=== PATIENT | female | born 1985 | race Caucasian/White ===

== ENCOUNTER → 2017-02-03 | Outpatient (CLI) | payer OTHER, MEDICAID ==
[2017-02-03 13:45] LABS: BASO % 0.2 % (0.0-1.0); EOS # 0.2 K/mm3 (0.0-0.50); EOS % 1.5 % (0.0-3.0); LARGE UNSTAINED CELL # 0.2 K/mm3 (0.0-0.4); LARGE UNSTAINED CELL % 1.1 % (0.0-4.0); LYMPH # 2.8 K/mm3 (1.5-4.5); LYMPH % 19.5 % (24.0-44.0); MEAN CORPUSCULAR HEMOGLOBIN 28.1 pg (27.0-33.0); MEAN CORPUSCULAR VOLUME 82.9 fl (80.0-96.0); MONO # 0.6 K/mm3 (0.0-0.8); MONO % 4.1 % (0.0-5.0); NEUTROPHILS # 10.4 K/mm3 (1.8-7.7); NEUTROPHILS % 73.5 % (36.0-66.0); PLATELET COUNT, AUTOMATED 439 k/mm3 (150-450); RED CELL DISTRIBUTION WIDTH 13.6 % (11.5-14.5); WHITE BLOOD COUNT 14.2 K/mm3 (4.0-10.0)
[2017-02-04 11:21] LABS: HBsAg Prenatal NEGATIVE (NEGATIVE)
== END ==
LOC: M SMT 10:38
PROVIDERS: ATTEND Advanced Practice Midwife
DX: Z34.81 Encounter for supervision of other normal pregnancy, first trimester (principal)

== ENCOUNTER → 2017-02-17 | Outpatient (CLI) | payer MEDICAID, OTHER ==
[2017-02-17 12:58] LABS: ALT/SGPT 33 U/L (12-78); AST/SGOT 16 U/L (15-37); BILIRUBIN,TOTAL 0.3 MG/DL (0.2-1.0); CREATININE FOR GFR 0.62 MG/DL (0.55-1.02); GLOMERULAR FILTRATION RATE > 60.0 (>60); URIC ACID 3.6 MG/DL (2.6-6.0)
== END ==
LOC: M LAB 10:38
PROVIDERS: ATTEND Advanced Practice Midwife
DX: O99.210 Obesity complicating pregnancy, unspecified trimester (principal)

== ENCOUNTER → 2017-04-25 | Outpatient (CLI) | payer OTHER, MEDICAID ==
--- NOTE | 2017-04-25 15:56 | REP ---
Clinical: Anatomical evaluation. Comparison: None. Findings: Examination demonstrates a single live intrauterine in cephalic presentation. motion is identified by technologist. Placenta is noted right lateral and grade zero without evidence for placenta previa or abruption. Amniotic fluid volume is normal. Cervix measures 4.6 cm in length and appears closed. 4.3 x 3.2 x 3.5 cm left lateral fibroid identified. No evidence for nuchal cord. Gestational age by current measurements 19 weeks 5 days with GARCIA 09/14/2017 . FHR equals 144 beats per minute. BPD 4.8 cm 20 weeks 3-day HC 17.1 cm 19 weeks 5 days AC 13.6 cm 19 weeks 0 days FL 3.3 cm 20 weeks 2 days HL 3.2 cm 20 weeks 5-day HC/AC ratio 1.26 Estimated weight 306 grams ( 47th percentile). Anatomical assessment demonstrates normal structures including cranium, choroid plexus, cavum, cerebellum/posterior fossa, facial features, lungs, diaphragm, stomach, cord insertion, kidneys/bladder, and extremities. Limited evaluation of the four-chamber heart/ventricular outflow tracts, three-vessel cord, and spine. Impression: 1. Single live intrauterine in cephalic presentation. Anatomical limitations as described above may warrant reevaluation and follow-up. 2. A 4.2 cm left lateral fibroid. Signed by Alan Bowser MD 04/25/2017 01:19 P
== END ==
LOC: M SMT 09:54
PROVIDERS: ATTEND Advanced Practice Midwife
DX: O99.210 Obesity complicating pregnancy, unspecified trimester (principal); Z3A.19 19 weeks gestation of pregnancy

== ENCOUNTER → 2017-04-29 | Outpatient (REF) | payer OTHER | LOC: M LAB REF 13:06 | PROVIDERS: ATTEND Advanced Practice Midwife | DX: Z34.82 Encounter for supervision of other normal pregnancy, second trimester (principal); Z3A.00 Weeks of gestation of pregnancy not specified ==

== ENCOUNTER → 2017-05-16 | Outpatient (CLI) | payer OTHER ==
--- NOTE | 2017-05-17 04:07 | REP ---
Clinical: Anatomical evaluation. Comparison: 04/25/2017 . Findings: Examination demonstrates a single live intrauterine in breech presentation. motion is identified by technologist. Placenta is noted posteriorly and grade one without evidence for placenta previa or abruption. Amniotic fluid volume is normal. Cervix measures 4.6 cm in length and appears closed. No evidence for nuchal cord. Gestational age by LMP 22 weeks 5 days with GARCIA 09/14/2017 . Gestational age by current measurements 22 weeks 5 days with GARCIA 09/14/2017 . FHR equals 141 beats per minute. Estimated weight 551 grams ( 55th percentile). Anatomical assessment demonstrates normal structures including cranium, choroid plexus, cavum, cerebellum/posterior fossa, facial features, lungs, four-chamber heart/left ventricular outflow tract, diaphragm, stomach, cord insertion/three-vessel cord, kidneys/bladder, and extremities. Limited evaluation of the right cardiac ventricular outflow tract and spine again noted due to positioning. Impression: Single live intrauterine in breech presentation demonstrating appropriate interval growth. Anatomical limitations as described above. Assessment is otherwise complete and normal. Signed by Alan Bowser MD 05/17/2017 12:59 A
== END ==
LOC: M SMT 10:10
PROVIDERS: ATTEND Advanced Practice Midwife
DX: Z34.82 Encounter for supervision of other normal pregnancy, second trimester (principal); Z3A.22 22 weeks gestation of pregnancy

== ENCOUNTER → 2017-06-10 | Outpatient (CLI) | payer OTHER ==
[2017-06-10 12:11] LABS: GLUCOSE CHALLENGE TEST 1 HOUR 86 MG/DL (LESS THAN 140)
[2017-06-10 12:30] LABS: BASO % 0.2 % (0.0-1.0); EOS # 0.4 10^3/uL (0.0-0.50); EOS % 2.6 % (0.0-3.0); HEMATOCRIT 32.6 % (36.0-47.0); HEMOGLOBIN 10.7 g/dl (12.0-16.0); IMMATURE GRANULOCYTE # 0.1 10^3/uL (0-0); IMMATURE GRANULOCYTE % 0.4 % (0-0); LYMPH # 2.5 10^3/uL (1.5-4.5); LYMPH % 18.2 % (24.0-44.0); MEAN CORPUSCULAR HEMOGLOBIN 27.4 pg (27.0-33.0); MEAN CORPUSCULAR HGB CONC 32.8 g/dl (32.0-36.5); MEAN CORPUSCULAR VOLUME 83.6 fl (80.0-96.0); MONO # 0.9 10^3/uL (0.0-0.8); MONO % 6.6 % (0.0-5.0); NEUTROPHILS # 10.1 10^3/uL (1.8-7.7); PLATELET COUNT, AUTOMATED 337 10^3/uL (150-450); RED CELL DISTRIBUTION WIDTH 13.4 % (11.5-14.5)
== END ==
LOC: M LAB 10:20
DX: Z34.83 Encounter for supervision of other normal pregnancy, third trimester (principal)
CPT/HCPCS: 82950

== ENCOUNTER → 2017-06-13 | Outpatient (CLI) | payer OTHER | LOC: M SMT 14:55 | DX: Z34.82 Encounter for supervision of other normal pregnancy, second trimester (principal); Z3A.28 28 weeks gestation of pregnancy | CPT/HCPCS: 76816 ==

== ENCOUNTER → 2017-08-02 | Outpatient (CLI) | payer OTHER | LOC: M RAD 10:29 | DX: Z36.89 Encounter for other specified antenatal screening (principal); O26.843 Uterine size-date discrepancy, third trimester; Z3A.33 33 weeks gestation of pregnancy | CPT/HCPCS: 76816 ==

== ENCOUNTER → 2017-08-15 | Outpatient (REF) | payer OTHER | LOC: M SFHCLERA 11:57 | DX: J02.9 Acute pharyngitis, unspecified (principal) ==

== ENCOUNTER → 2017-08-19 | Outpatient (REF) | payer OTHER | LOC: M LAB REF 13:08 | DX: Z34.83 Encounter for supervision of other normal pregnancy, third trimester (principal) ==

== ENCOUNTER → 2018-01-04 | Outpatient (REF) | payer OTHER ==
[2018-01-10 14:28] LABS: HPV LOW VOL RFLX Negative (Negative)
== END ==
LOC: M LAB REF 17:32
DX: Z01.419 Encounter for gynecological examination (general) (routine) without abnormal findings (principal); Z11.51 Encounter for screening for human papillomavirus (HPV)
CPT/HCPCS: 88142

== ENCOUNTER → 2019-03-28 | Outpatient (REF) | payer OTHER ==
[~2019-03-28] MED LIST: COLA100C5 PO; IBUP80TA PO; OXYC1TAB23 PO; PRENTAB9 PO; [UNRECOGNIZED DRUG - REMARK]
== END ==
LOC: M SFHCLERA 11:04
PROVIDERS: ATTEND Physician Assistant
DX: R10.13 Epigastric pain (principal)

== ENCOUNTER → 2019-04-23 | Outpatient (CLI) | payer OTHER ==
--- NOTE | 2019-04-23 15:21 | REP ---
Clinical: Cough. Technique: PA and lateral. Findings: Cardiomegaly is appreciated. Diffuse coarsened interstitial markings may reflect bronchitis. No focal consolidation. No effusion. No pneumothorax. Skeletal structures intact. Impression: Cardiomegaly. Cannot exclude bronchitis. Electronically Signed by Alan Bowser MD 04/23/2019 03:13 P
== END ==
LOC: M LRY 14:51
PROVIDERS: ATTEND Physician Assistant
DX: I51.7 Cardiomegaly (principal)

== ENCOUNTER 2019-05-24 15:06 | Inpatient (IN) | payer OTHER ==
[~2019-05-24] VITALS: Ht 157.5 cm; Wt 88.2 kg
[2019-05-24] MEDS ORDERED: FURO40TA2 PO (15:57)
[2019-05-24] MEDS ORDERED: MICR1TAB16 PO (15:57)
--- NOTE | 2019-05-24 16:02 | REP ---
Clinical: Chest pain . Comparison: 04/23/2019 . Findings: The mediastinum and cardiac silhouette are stable and within normal limits for portable technique. The lung lopez are clear without acute consolidation, effusion, or pneumothorax. Skeletal structures are intact. Impression: No acute cardiopulmonary process appreciated. Electronically Signed by Alan Bowser MD 05/24/2019 03:53 P
[2019-05-24 16:10] LABS: BASO % 0.4 % (0.0-1.0); EOS # 0.1 10^3/uL (0.0-0.5); EOS % 1.4 % (0.0-3.0); HEMATOCRIT 39.6 % (36.0-47.0); LYMPH # 2.1 10^3/uL (1.5-5.0); LYMPH % 20.8 % (24.0-44.0); MEAN CORPUSCULAR HEMOGLOBIN 25.5 pg (27.0-33.0); MEAN CORPUSCULAR HGB CONC 30.3 g/dl (32.0-36.5); MEAN CORPUSCULAR VOLUME 84.3 fl (80.0-96.0); MONO # 0.5 10^3/uL (0.0-0.8); MONO % 5.1 % (0.0-5.0); NEUTROPHILS # 7.3 10^3/uL (1.5-8.5); NEUTROPHILS % 72.1 % (36.0-66.0); PLATELET COUNT, AUTOMATED 334 10^3/uL (150-450); WHITE BLOOD COUNT 10.2 10^3/uL (4.0-10.0)
[2019-05-24 16:27] LABS: INR 1.32; PROTHROMBIN TIME 16.1 SECONDS (11.8-14.0)
[2019-05-24 16:28] LABS: PARTIAL THROMBOPLASTIN TIME 26.4 SECONDS (25.0-38.4)
[2019-05-24 16:50] LABS: ALBUMIN 2.9 GM/DL (3.2-5.2); ALT/SGPT 25 U/L (12-78); BILIRUBIN,DIRECT 0.4 MG/DL (0.0-0.2); BLOOD UREA NITROGEN 19 MG/DL (7-18); CALCIUM LEVEL 8.7 MG/DL (8.5-10.1); CARBON DIOXIDE LEVEL 26 MEQ/L (21-32); CHLORIDE LEVEL 105 MEQ/L (98-107); CK-MB VALUE MASS 1.6 NG/ML (<3.6); CPK CREATINE PHOSPHOKINASE 89 U/L (26-192); FREE T4 1.35 NG/DL (0.76-1.46); GLOMERULAR FILTRATION RATE > 60.0 (>60); GLUCOSE, FASTING 103 MG/DL (70-100); LIPASE 99 U/L (73-393); POTASSIUM SERUM 4.1 MEQ/L (3.5-5.1); SODIUM LEVEL 139 MEQ/L (136-145); TOTAL PROTEIN 7.6 GM/DL (6.4-8.2); TROPONIN I 0.43 NG/ML (< 0.10)
[2019-05-24] MEDS ORDERED: ISOVUE-370 76% 100ML VIAL (Q9967) As Ordered ONE (17:25)
[2019-05-24 17:34] LABS: HCG, SERUM QUALITATIVE NEGATIVE (NEGATIVE)
--- NOTE | 2019-05-24 17:44 | REPVR ---
PROCEDURE INFORMATION: Exam: CT Angiography Chest With Contrast Exam date and time: 05/24/2019 5:34 PM Age: 33 years old Clinical indication: Dyspnea and other: Tachycardia; Additional info: Tachycardia, dyspnea, cardiomegaly R/O pe TECHNIQUE: Imaging protocol: Computed tomographic angiography of the chest with intravenous contrast. 3D rendering: MIP and/or 3D reconstructed images were created by the technologist. Radiation optimization: All CT scans at this facility use at least one of these dose optimization techniques: automated exposure control; mA and/or kV adjustment per patient size (includes targeted exams where dose is matched to clinical indication); or iterative reconstruction. Contrast material: ISOVUE 370; Contrast volume: 75 ml; Contrast route: IV; COMPARISON: CR PORTABLE CHEST X-RAY 05/24/2019 3:41 PM FINDINGS: Pulmonary arteries: There are no pulmonary emboli. Aorta: Contrast not identified within the thoracic aorta limiting evaluation for dissection. No contour abnormality demonstrated. Lungs: Bilateral geographic ground-glass opacities most pronounced in the mid and lower lung zones. Findings may represent atelectasis although bilateral pneumonitis (most typically viral) is not excluded. Pleural space: See Lungs Finding. Heart: Unremarkable. No cardiomegaly. No pericardial effusion. Lymph nodes: Unremarkable. No enlarged lymph nodes. Bones/joints: Unremarkable. No acute fracture. Soft tissues: Unremarkable. IMPRESSION: 1. Bilateral geographic ground-glass opacities most pronounced in the mid and lower lung zones. Findings may represent atelectasis although bilateral pneumonitis (most typically viral) is not excluded. 2. There are no pulmonary emboli. 3. Contrast not identified within the thoracic aorta limiting evaluation for dissection. No contour abnormality demonstrated. Electronically signed by: Aureliano Colvin On 05/24/2019 17:44:22 PM
[2019-05-24] MEDS ORDERED: DIGOXIN INJ 0.5 MG/2 ML AMP (J1160) IV ONE (18:15)
[2019-05-24] MEDS ORDERED: METOPROLOL SUCC *XL* 25MG TAB (TopROL *XL*) PO ONE (18:15)
[2019-05-24] MEDS ORDERED: ENTRESTO 24-26MG TABLET (SACUBITRIL/VALSARTAN) PO ONE (18:15)
--- NOTE | 2019-05-24 21:08 | ECGEPIP ---
- ED Test Date: 2019-05-24 Pat Name: WINSTON GUTIERREZ Department: Room: - Gender: Female [employer]: : 1985 Requested By: Frandy Franco Order Number: [id number] Reading MD: Frandy Villarreal Measurements Intervals [place] Rate: 122 P: 35 VA: 143 QRS: 13 QRSD: 97 T: 98 QT: 311 QTc: 443 Interpretive Statements SINUS TACHYCARDIA POSSIBLE LEFT ATRIAL ENLARGEMENT NONSPECIFIC ST & T-WAVE ABNORMALITY NO PRIORS FOR COMPARISON Electronically Signed on 05-24-2019 21:08:19 EST by Frandy Villarreal
--- NOTE | 2019-05-24 21:19 | HPEPDOC ---
[facility] Medical History & Physical Date of Admission May 24, 2019 Date of Service: May 24, 2019 Attending Physician: NAM EDWARD MD History and Physical CHIEF COMPLAINT: Short of breath and chest pain HISTORY OF PRESENT ILLNESS: 33-year-old female with past medical history of dilated cardiomyopathy diagnosed one month ago presents from home with worsening chest pain and shortness of breath. Her chest pain started yesterday, sharp, intermittent, nonradiating on the left side without any associated symptoms. She presented to the emergency department today because pain was worsening. She was diagnosed with dilated cardiomyopathy one month ago, shortly after she was diagnosed with a viral URI. Of note, she gave in August 2017, did not have any cardiac issues during her after , has been asymptomatic up until one month ago. Since her diagnosis she has been treated with Lasix 40 mg, which is initially once a day and recently increased to twice a day with good response. She continues to have dyspnea on exertion and orthopnea, which has improved since diagnosis. In the ED, cardiology was consulted, echocardiogram showed EF around 20%, Dr. Ulrich recommended starting patient on digoxin, Entresto and metoprolol. Patient is currently comfortable, has not had chest pain since prior to arrival in the ED, denies any shortness of breath, nausea, vomiting, abdominal pain or diarrhea. 10 point review of system is negative except for above PAST MEDICAL HISTORY: 1. Dilated cardiomyopathy. PAST SURGICAL HISTORY: 1. . 2. Tonsillectomy. 3. Cholecystectomy. SOCIAL HISTORY: Never smoker. Denies alcohol use. Denies drug use FAMILY HISTORY: Father had pancreatic cancer ALLERGIES: Please see below. HOME MEDICATIONS: Please see below. PHYSICAL EXAMINATION: VITAL SIGNS: Please see below. GENERAL: No distress HEENT: Normocephalic, atraumatic, moist mucous membranes NECK: Supple CARDIOVASCULAR EXAMINATION: S1, S2, tachycardic RESPIRATORY EXAMINATION: Bibasilar rhonchi, no wheezing ABDOMINAL EXAMINATION: Soft, nontender, nondistended, positive bowel sounds EXTREMITIES: Range of motion intact SKIN: No rash NEUROLOGICAL EXAMINATION: Alert and oriented 3, no focal deficits PSYCHIATRIC EXAMINATION: Calm and cooperative LABORATORY DATA: See below. IMAGING: CT with cardiomegaly, echocardiogram showing cardiomegaly with EF around 20%. MICROBIOLOGY: Please see below. ASSESSMENT: 33-year-old female with recently diagnosed dilated cardiomyopathy presents with worsening symptoms. PLAN: 1. Dilated cardiomyopathy. Questionable viral etiology, does not appear to be related to her , case discussed with Dr. Ulrich by ED physician, continue digoxin, Entresto and metoprolol as per his recommendations. TTE in the emergency department shows EF around 20%, EKG without acute ischemic changes, troponin elevated to 0.42, will trend. Official cardiology consult pending. DVT prophylactic: TEDs. GI prophylaxis: Not needed Vital Signs Vital Signs Date Time Temp Pulse Resp B/P (MAP) Pulse Ox O2 Delivery O2 Flow Rate FiO2 05/24/19 20:16 108 97 05/24/19 20:15 131/87 (102) 05/24/19 19:31 97.9 Room Air 05/24/19 18:15 16 Laboratory Data Labs 24H Laboratory Tests 2 05/24/19 15:30: Immature Granulocyte % (Auto) 0.2, Neutrophils (%) (Auto) 72.1H, Lymphocytes (%) (Auto) 20.8L, Monocytes (%) (Auto) 5.1H, Eosinophils (%) (Auto) 1.4, Basophils (%) (Auto) 0.4, Neutrophils # (Auto) 7.3, Lymphocytes # (Auto) 2.1, Monocytes # (Auto) 0.5, Eosinophils # (Auto) 0.1, Basophils # (Auto) 0.0, Nucleated Red Blood Cells % (auto) 0.0, Prothrombin Time 16.1H, Prothromb Time International Ratio 1.32, Activated Partial Thromboplast Time 26.4, Anion Gap 8, Glomerular Filtration Rate > 60.0, Calcium Level 8.7, Total Bilirubin 1.0, Direct Bilirubin 0.4H, Aspartate Amino Transf (AST/SGOT) 19, Alanine Aminotransferase (ALT/SGPT) 25, Alkaline Phosphatase 56, Total Creatine Kinase 89, Creatine Kinase MB 1.6, Creatine Kinase MB Relative Index 1.80, Troponin I 0.43H, Total Protein 7.6, Albumin 2.9L, Albumin/Globulin Ratio 0.62L, Lipase 99, Thyroid Stimulating Hormone (TSH) 2.860, Free Thyroxine 1.35, Human Chorionic Gonadotropin, Qual NEGATIVE CBC/BMP Laboratory Tests 05/24/19 15:30 Home Medications Scheduled Furosemide (Furosemide) 40 Mg Tablet, 40 MG PO BID Norethindrone-E.estradiol-Iron (Microgestin Fe 1-20 Tablet) 1 Each Tablet, 1 TAB PO QPM @1900 Allergies Coded Allergies: No Known Allergies (Unverified , 08/25/17) A-FIB/CHADSVASC A-FIB History Current/History of A-Fib/PAF?: No NAM EDWARD MD May 24, 2019 21:19
[2019-05-24 21:40] VITALS: BP 167/85
[2019-05-25] VITALS: BP 136/84
[2019-05-25] MEDS ORDERED: DIGOXIN 0.25 MG TAB PO ONE (02:00)
[2019-05-25 04:00] VITALS: BP 140/91
[2019-05-25 05:41] LABS: HEMATOCRIT 39.8 % (36.0-47.0); HEMOGLOBIN 12.4 g/dl (12.0-15.5); MEAN CORPUSCULAR HEMOGLOBIN 25.8 pg (27.0-33.0); MEAN CORPUSCULAR HGB CONC 31.2 g/dl (32.0-36.5); MEAN CORPUSCULAR VOLUME 82.7 fl (80.0-96.0); PLATELET COUNT, AUTOMATED 309 10^3/uL (150-450); RED BLOOD COUNT 4.81 10^6/uL (4.00-5.40); WHITE BLOOD COUNT 11.1 10^3/uL (4.0-10.0)
[2019-05-25 06:12] LABS: ALBUMIN 2.5 GM/DL (3.2-5.2); ALT/SGPT 20 U/L (12-78); BILIRUBIN,TOTAL 1.1 MG/DL (0.2-1.0); BLOOD UREA NITROGEN 13 MG/DL (7-18); CALCIUM LEVEL 8.1 MG/DL (8.5-10.1); CARBON DIOXIDE LEVEL 26 MEQ/L (21-32); CHLORIDE LEVEL 105 MEQ/L (98-107); CREATININE FOR GFR 0.95 MG/DL (0.55-1.30); GLOMERULAR FILTRATION RATE > 60.0 (>60); GLUCOSE, FASTING 85 MG/DL (70-100); MAGNESIUM LEVEL 2.3 MG/DL (1.8-2.4); POTASSIUM SERUM 3.5 MEQ/L (3.5-5.1); SODIUM LEVEL 139 MEQ/L (136-145); TOTAL PROTEIN 7.2 GM/DL (6.4-8.2)
[2019-05-25 08:00] VITALS: BP 139/89
[2019-05-25] MEDS: CARVedilol 6.25 MG TAB PO SCH ×2 (08:06→20:53)
[2019-05-25] MEDS: DIGOXIN 0.25 MG TAB PO SCH (08:06)
[2019-05-25] MEDS ORDERED: SLF 3 ML SYR IV PRN (08:30)
--- NOTE | 2019-05-25 08:50 | ECHO ---
DATE OF PROCEDURE: 05/24/2019 DATE OF : 1985 AGE: 33 GENDER: Female HEIGHT: 62 inches WEIGHT: 194 pounds BODY SURFACE AREA: 1.89 m2 INPATIENT: Progressive care unit (PCU) REFERRING PHYSICIAN: Dr. Frandy Villarreal INDICATION: Cardiomegaly, rule out pericardial effusion. MEASUREMENTS: 2-D Measurements: RV: 4.2 cm LV: 6.8 cm Septum: 0.9 cm Posterior wall: 0.9 cm Aortic root: 2.8 cm LA: 4.4 cm LVEF: 20% Doppler Measurements: AV: 1.03 m/s LVOT: 0.33 m/s LVOT diameter: 1.8 cm MV: E: 8.7, A: - Early mitral deceleration time: 150 ms E prime: 5.7 (medial) E prime: 6.1 (lateral) Average E/E prime ratio: 14.7/PCWP: 20 mmHg PV: 0.7 m/s Pulmonary artery acceleration time: 75 ms RVSP: 61 mmHg IVC: 2.3 cm COMMENTS: Sinus tachycardia with incomplete left bundle branch block. M-mode and two-dimensional echocardiography was performed with pulsed, continuous wave, color flow and tissue Doppler studies. Prominently dilated left ventricle with normal wall thickness and severe global hypokinesis. Mildly dilated left atrium with a suspected elevated mean left atrial pressure but somewhat difficult to evaluate diastolic function in light of superimposition of early and late diastolic filling patterns. At least mildly dilated right heart chambers with right ventricular free wall hypokinesis and Doppler evidence of severe pulmonary hypertension. Mildly dilated left inferior vena cava with absent respiratory collapse in keeping with a significantly elevated central venous pressure. Marginally thickened aortic valve with adequate cusp separation but premature cusp closure in keeping with reduced forward stroke volume. Minimally thickened mitral valvular apparatus with "low flow" appearance to leaflet motion but no posterior systolic buckling, yet mild-moderate insufficiency. Normal aortic diameters. Could not rule out small apical mural thrombus with certainty. Minuscule posterior pericardial fluid (physiologic).
[2019-05-25] MEDS ORDERED: METOPROLOL SUCC *XL* 12.5MG PER 1/2 TAB (TopROL *XL*) PO SCH (09:00)
[2019-05-25] MEDS ORDERED: ENTRESTO 24-26MG TABLET (SACUBITRIL/VALSARTAN) PO SCH (09:00)
[2019-05-25] MEDS: ENTRESTO 49-51MG TABLET (SACUBITRIL/VALSARTAN) PO SCH ×2 (09:14→20:53)
[2019-05-25] MEDS: SLF 3 ML SYR IV SCH ×2 (11:08→20:53)
[2019-05-25 12:00] VITALS: BP 132/75
[2019-05-25 16:00] VITALS: BP 116/70
[2019-05-25] MEDS: ENOXAPARIN 40 MG/0.4 ML SYRINGE (J1650) SC SCH (18:29)
--- NOTE | 2019-05-25 19:33 | CR ---
DATE OF CARDIOLOGY CONSULTATION: 05/25/2019 REFERRING PHYSICIAN: Reny Basurto MD INDICATION: Congestive heart failure. Cardiomegaly. 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 She describes having had a dry cough but at the same time developed right upper quadrant pain with investigations leading to a cholecystectomy in [facility] early March 2019. At the time of her procedure her resting heart rate was noted to be elevated at 118 beats per minute. Following her discharge, her cough became steadily worse with increasing shortness of breath and orthopnea. Initially treated as respiratory tract infection/pneumonia to no effect. A chest x-ray was obtained mid March 2019 and reportedly showed cardiomegaly with pulmonary venous congestion. The patient was started on IV Lasix and a referral was made to a local cardiology office. No direct provider to provider communication was made. The patient was given an appointment for consultation for June of 2019. Though her shortness of breath and dependent edema improved along with a 20-pound weight loss, she came to the emergency room yesterday afternoon with complaint of increasing effort limitation and fatigue. Initial vitals at 03:00 p.m. yesterday on her presentation showed a heart rate of 120 beats per minute, blood pressure 122/66, respiratory rate 18, O2 saturation on room air 98% and she was afebrile. Her height is 5 feet 2 and weight 88.6 kg. BMI 35.9. Chest x-ray and chest CT angiograms were performed in the emergency room and were reported as showing a normal heart size with no pulmonary embolism but the emergency room physician and I reviewed these films independently and they show gross! cardiomegaly. EKG showed sinus tachycardia with possible left atrial enlargement and nonspecific repolarization abnormalities. The patient was admitted to the telemetry floor and cardiology consultation was placed along with request for an echocardiogram. Upon receiving the request yesterday evening I started the patient on digoxin, low-dose metoprolol succinate and Entresto. Today the patient already feels improved symptomatically. She specifically denies any history of effort related chest discomforts. Has been unaware of an abnormal EKG. No prior stress testing. Admits to having heartburn briefly with her but no history of dysphagia or GI bleeding. She was never exposed to smoke and never smoked herself. Does have a history of seasonal allergies and has been taking regular Zyrtec [id number] for many years. As mentioned above, started having a cough productive of clear sputum in March with increasing shortness of breath and orthopnea as mentioned. Currently can walk no farther than half block prior to stopping with dyspnea and fatigue. No history of hemoptysis or prior pneumonia. Has been sleeping with four pillows poorly. No history of obstructive sleep apnea. No history of prior rheumatic fever. Claims to have been aware of a heart murmur since infancy but had no restriction growing up or with her . Has not had any prior workup for her murmur. No history of hypertension but during the final stages of her 18 months ago, did develop preeclampsia with hypertension leading to a section. Her subsequent blood pressures have been normal. She did have a problem with ankle swelling during the internal phases of her and for approximately 1 week following her section. Has had recurrent swelling the past few months. This has improved with Lasix therapy as described above. She is unaware of cardiac enlargement from the past. No family history of cardiomyopathy. Does not recall any clear-cut predisposing infection last March or February. Has a weight problem (weighed 160 pounds at age 19; max weight 224 pounds a few months following her . Her weight had been stable this past year until she was given Lasix 40 mg twice a day by her primary provider. Has been unaware of any palpitations and did not recognize that her heart rate was fast since March 2019 despite it being documented at the time of her cholecystectomy. No history of previously documented rhythm disturbance. No family history of premature sudden cardiac or congenital deafness. Avoids caffeinated beverages since mid March 2019, but admits to having ingested Mountain Dew one 20 ounce bottle daily prior to that. Avoids alcohol. She is a nonsmoker. No history of hyperthyroidism. Avoids pyec-pqh-ruaohdw decongestants beyond Zyrtec. No use of pep pills or diet aids. Has not had any problems with dizziness, falling or loss of consciousness. Denies lateralizing neurological deficits, flank pain, hematuria or blue toe syndrome. No history of claudication or varicose veins. No history of phlebitis, ankle swelling as mentioned above. CORONARY RISK FACTORS: None beyond her weight. Specifically has not been a smoker with no history of hypertension, diabetes, hypercholesterolemia or family history of premature coronary disease. OTHER PAST MEDICAL / SURGICAL HISTORY: Tonsillectomy and adenoidectomy at age 15. History of seasonal allergies with Zyrtec use. section 18 months ago because of preeclampsia. History of urinary tract infections. Cholecystectomy, laparoscopic, March 2019. Obesity. REVIEW OF SYSTEMS Recently has had a problem with headaches that have resolved since her new glasses prescription. With glasses she is able to read without problems. No hearing problems. Has her own teeth in good repair. Has a good appetite with no dysphagia, abdominal pains at this time. Regular bowel habit with no GI bleeding. Nocturia recently because of fluid ingestion and Lasix therapy. Prior history of urinary tract infections but no recent hematuria. Denies any joint complaints or skin rashes. No history of Lyme disease. All other systems review is negative. MEDICATIONS ON ADMISSION Included Lasix 40 mg twice a day and control pill Norethindrone-Estradiol with iron one tablet daily. ALLERGIES: None known. PHYSICAL EXAMINATION Constitutional: Pleasant bright young woman. Overweight but currently lying comfortably with the head of bed elevated 30 degrees. No obvious pallor, cyanosis or diaphoresis. Vital signs: Current heart rate 88 beats per minute and regular. Blood pressure 112/78 supine, dropping to 106/76 sitting with legs dependent (both arms), respiratory rate 16 per minute with O2 saturation 98% on room air. Afebrile. Weight 196 pounds, height 62 inches and BMI 35.9. Eyes: Normal conjunctivae and lids. No xanthelasma. ENT/mouth: Teeth in good repair. Normal oral moisture. No central cyanosis. Neck: Trachea midline. Thyroid not enlarged. Neck veins remain elevate 5-6 cm above the sternal angle. Respiratory: Slightly increased anteroposterior chest diameter but good chest expansion. Symmetrical air entry over both lung lopez with no current abnormal pulmonary adventitious sounds. Cardiovascular: Apical impulse obviously lateral to the midclavicular line fifth intercostal space. S1 and S2 normal, question summation gallop, but no audible murmur. No rub. Normal carotid upstroke with reduced volume. No carotid bruits. Upper extremity femoral and pedal pulses were symmetrical and normal. Abdominal aorta was not palpable. No bruits. Has plus/minus pitting three-quarters of the way up both lower legs but no sacral pitting at this time. No varicose veins. GI: Overweight, soft, nontender abdomen with healed abdominal incisions related to her cholecystectomy and section. Liver span 10 cm in right mid clavicular line. Spleen not palpable. Normal bowel sounds. Rectal examination not indicated. Musculoskeletal: No obvious joint deformities. Normal-appearing muscular strength and tone. Normal spine curvature. Neuro/psych: Bright, alert and oriented, gave a lucid history. Eye, facial, extremity movements were symmetrical and normal. Skin: No pallor icterus or rashes. INVESTIGATIONS: Portable upright chest x-ray May 24, 2019 reviewed independently shows obvious cardiomegaly despite the official report. Greater vessels were normal. Currently does not have pulmonary venous congestion. Lung lopez were clear with no pleural effusion. Chest CT angiogram taken to May 24, 2019 was also reviewed independently and shows gross cardiomegaly involving all four chambers. No pericardial effusion. No evidence of coronary artery calcification or atherosclerosis of the thoracic aorta, which is normal in size. Her pulmonary trunk was increased in size. No evidence of pulmonary embolism. Bilateral ground-glass opacities mostly in the lower lobes but no pleural effusions. LABS: Blood work: Hemoglobin 12.0 with slightly reduced MCHC but normal cell size. Slight leukocytosis of 10,200 with normal differential. PT/INR was slightly abnormal with PT 16.1, INR 1.3. Normal PTT. Electrolytes were in balance with sodium 139, potassium 4.1. Normal bicarbonate, BUN 19, creatinine 1.1, random glucose 103, magnesium level was normal at 2.3. Normal liver function studies except for albumin reduced at 2.9. Ultra sensitive TSH was normal at 2.86. Her HCG quantitative was negative. CPKs were normal. Troponin I level was marginally increased at 0.43 with followup 0.33. EKG on admission yesterday was reviewed independently and shows sinus tachycardia at 122 beats per minute. Possible left atrial enlargement with incomplete left bundle branch block and slightly slow precordial R-wave progression. Diffuse nonspecific ST/T-wave abnormalities. No prior tracing for comparison. Echocardiogram: Study performed yesterday with official report dictated by myself shows a prominently dilated left ventricle measuring 6.8 cm with normal wall thickness and severe global hypokinesis, left ventricular ejection fraction (LVEF) 10-20%, left atrial enlargement but unable to define diastolic function in light of superimposition of early and late diastolic filling patterns, suspected mean left atrial pressure was elevated. At least mildly dilated right heart chambers with Doppler evidence of severe pulmonary hypertension with RVSP estimated at 61 mmHg. Inferior vena cava (IVC) was dilated at 2.3 cm with absent respiratory collapse in keeping with elevated central venous pressure/right heart failure. Marginally thickened aortic valve with adequate separation and premature cusp closure in keeping with reduced forward stroke volume. Minimally thickened mitral valvular apparatus with low flow appearance to leaflet motion but no posterior systolic buckling, yet mild - moderate insufficiency. Normal aortic dimensions. Could not rule out small apical mural thrombus with certainty. Minuscule posterior pericardial effusion (physiologic). IMPRESSION AND PLAN: 1. Heart failure (systolic and diastolic (relatively acute): Currently has few signs of congestion ongoing despite her excessive fluid intake combined with her Lasix therapy. Remarkably her electrolytes were in balance. No azotemia. From her history we suspect this is most likely a viral induced dilated cardiomyopathy. We have discussed the importance of following a modest salt, caloric and fluid intake restriction. We will have the cardiac rehab program follow her and provide congestive heart failure (CHF) education and gradual ambulation. We have started her on digoxin; 0.5 mg was administered in the emergency room and she is continued on 0.25 mg by mouth along with carvedilol 6.25 mg twice a day and Entresto. We initially started with a dose of 24-26 mg, but because of relatively elevated blood pressures here in hospital we have escalated the dose to 49-52 mg tablets twice a day. She has been tolerating this without problems. We have discussed her somewhat guarded prognosis at this time and her risk of potentially malignant ventricular arrhythmias. Prior to her discharge home we will arrange for a LifeVest. We are hoping with time and the combination of the medications above, her left ventricular size and performance will significantly improve. We have discussed should this not be the case an implantable cardioverter defibrillator would be advised as a primary prevention of sudden . We have also discussed referral to a center of excellence with heart failure management with access to left ventricular assist devices versus cardiac transplant should she not show considerable improvement within the next 6 weeks to 3 months. 2. Abnormal EKG: Findings in keeping with her body habitus. Left atrial conduction disturbance in keeping with her left atrial enlargement. No sign of prior infarction. Repolarization abnormalities are nonspecific. As mentioned, she has no coronary risk factors. The likelihood of coronary artery disease here is virtually zero. 3. Mitral valve disorder (non rheumatic): Has subtle thickening of her valvular structures. The observed mild to moderate mitral insufficiency is believed to be related to her left ventricular dysfunction rather than intrinsic valvular disease. Has no current audible murmur. No symptoms or signs to suggest endocarditis. 4. BMI 35.9: Discussed the importance of weight reduction to reduce cardiac workload. Despite her weight problem does not have evidence of glucose intolerance. Lipid profile at the time of her was reportedly normal. Does not have hypertension or history to suggest obstructive sleep apnea. Hopefully we can help facilitate her receiving a LifeVest prior to her discharge from hospital. We will plan on monitoring her closely but she already shows signs of improvement in her sense of well-being with initiation of combination therapy yesterday. KASANDRA
[2019-05-25 20:00] VITALS: BP 110/82
[2019-05-25 20:02] LABS: PERCENT SATURATION 9.9 % (13.2-45.0)
[2019-05-25] MEDS ORDERED: ACETAMINOPHEN TAB 650MG DOSE (2X325MG) PO PRN (20:45)
[2019-05-26] VITALS: BP 104/68
[2019-05-26 04:00] VITALS: BP 120/65
[2019-05-26] MEDS: SLF 3 ML SYR IV SCH ×3 (05:11→21:27)
[2019-05-26 05:19] LABS: ALBUMIN 2.3 GM/DL (3.2-5.2); BLOOD UREA NITROGEN 13 MG/DL (7-18); CALCIUM LEVEL 8.5 MG/DL (8.5-10.1); CARBON DIOXIDE LEVEL 30 MEQ/L (21-32); CHLORIDE LEVEL 106 MEQ/L (98-107); CREATININE FOR GFR 0.92 MG/DL (0.55-1.30); GLOMERULAR FILTRATION RATE > 60.0 (>60); GLUCOSE, FASTING 101 MG/DL (70-100); PHOSPHORUS LEVEL 3.6 MG/DL (2.5-4.9); SODIUM LEVEL 141 MEQ/L (136-145); TROPONIN I 0.17 NG/ML (< 0.10)
[2019-05-26 08:00] VITALS: BP 110/62
[2019-05-26] MEDS: CARVedilol 6.25 MG TAB PO SCH ×2 (08:38→21:27)
[2019-05-26] MEDS: ENTRESTO 49-51MG TABLET (SACUBITRIL/VALSARTAN) PO SCH ×2 (08:38→21:25)
[2019-05-26] MEDS: ENOXAPARIN 40 MG/0.4 ML SYRINGE (J1650) SC SCH (08:39)
[2019-05-26] MEDS: DIGOXIN 0.25 MG TAB PO SCH (08:39)
[2019-05-26 12:00] VITALS: BP 111/56
[2019-05-26 16:00] VITALS: BP 117/60
--- NOTE | 2019-05-26 19:59 | IPNPDOC ---
Text Note Date of Service The patient was seen on 05/26/19. NOTE SUBJECTIVE: Ms Lemus is medically stable; she has not had any chest pain. She has a new diagnosis of cardiomyopathy of viral etiology. She has EF of 10 - 20%. OBJECTIVE: Physical exam: HENT: neck is supple, no adenopathy or thyromegaly CV: RRR, no appreciable murmur ABD: soft, nontender, nondistended, moderate central obesity CHEST: CTA, no rales, wheezes or cough EXT: no peripheral/pedal edema ASSESSMENT/PLAN: Viral Cardiomyopathy Multiple serology studies pending. She is on appropriate medication regimen for cardiac remodelling. Awaiting arrangements for LifeVest. Appreciate assistance from Cardiology service. VS,Mague, I+O VS, Mague, I+O Laboratory Tests 05/26/19 04:06 Vital Signs Date Time Temp Pulse Resp B/P (MAP) Pulse Ox O2 Delivery O2 Flow Rate FiO2 05/26/19 16:00 98.0 91 18 117/60 (79) 98 Room Air I&O- Last 24 Hours up to 6 AM 05/26/19 07:59 Intake Total 1020 ml Output Total 1300 ml Balance -280 ml JO COX MD May 26, 2019 19:59
[2019-05-26 20:00] VITALS: BP 116/65
[2019-05-27] VITALS: BP 109/64
[2019-05-27 04:00] VITALS: BP 111/64
[2019-05-27] MEDS: SLF 3 ML SYR IV SCH ×2 (05:02→11:17)
--- NOTE | 2019-05-27 05:55 | IPN ---
DATE: 05/26/2019 CARDIOLOGY PROGRESS NOTE SUBJECTIVE: The patient has been up walking in the halls and was playing with her [id number] daughter earlier today without shortness of breath or dizziness. Remains unaware of her heart action. Appears to be tolerating her medications without adverse effect. OBJECTIVE: Pleasant, overweight, young woman currently lying with head of bed elevated 30 degrees. Heart rate (HR) 96 bpm and regular, blood pressure 104/68 supine, 104/70 sitting with legs dependent, respiratory rate 16, O2 saturation 90% on room air. Afebrile. Her weight is essentially stable at 190.6 pounds today. No pallor or cyanosis. Normal oral moisture. Trachea midline. Neck veins appear to be approximately 4 cm above the sternal angle. Good air entry over both lung lopez with no current inspiratory rales. No more than plus/minus distal lower leg pitting. AIRCRAFT TECHNICIAN: This is shown only sinus rhythm without atrial or ventricular ectopic activity. LABORATORY DATA: Chemistry today confirms electrolyte balance with potassium 4.0, BUN remains stable at 13, creatinine stable at 0.9, fasting glucose 101. Troponin I level has decreased to 0.017 this morning. Albumin remains soft at 2.3. EKG: Study performed earlier today shows sinus rhythm with a much slower rate. Slightly more marked repolarization abnormalities on digoxin therapy. IMPRESSION / PLAN: 1. Heart failure (systolic and diastolic/acute): Appears to be doing very well. Likely compensated at this point her weight in hospital on salt and fluid intake restriction. Has been stable without the use of diuretic therapy at this time. No change has been planned to her current digoxin, Entresto and carvedilol. Paperwork has been completed for LifeVest and hopefully she can have this applied within the next 24 hours and then be discharged home with close followup through my office. 2. Abnormal EKG: As mentioned, slightly more marked repolarization abnormalities likely due to digoxin from the ischemia. Has been ambulating without any symptoms to suggest myocardial ischemia and Troponin I level has been decreasing. I believe these indeterminate values are related to her decompensation and pulmonary hypertension, not coronary artery disease. Will remain on protective beta-willem and Entresto. 3. Mitral valve disorder (nonrheumatic): Has no auscultatory findings. No symptoms or signs of endocarditis. Believed to be a functional abnormality due to her left ventricular dysfunction and anticipated to improve as her left ventricle improves. 4. Dilated cardiomyopathy: Likely viral in nature. Viral studies were requested along with iron studies, but these are pending at this time. 5. BMI 35.9: She certainly appears to be motivated to effect behavioral change to reduce weight. She understands that every pound she loses will reduce cardiac workload. As mentioned, I believe she will be ready for discharge once she has received LifeVest to prevent potentially malignant ventricular arrhythmia. Her risk of this at this point is perhaps 30% annually.
[2019-05-27 08:00] VITALS: BP 122/76
[2019-05-27] MEDS: ENTRESTO 49-51MG TABLET (SACUBITRIL/VALSARTAN) PO SCH (08:26)
[2019-05-27 08:27] VITALS: BP 118/76
[2019-05-27] MEDS: ENOXAPARIN 40 MG/0.4 ML SYRINGE (J1650) SC SCH (08:27)
[2019-05-27] MEDS: CARVedilol 6.25 MG TAB PO SCH (08:27)
[2019-05-27] MEDS: DIGOXIN 0.25 MG TAB PO SCH (08:27)
[2019-05-27] MEDS ORDERED: FERROUS SULFATE 325MG TAB PO SCH (09:00)
--- NOTE | 2019-05-27 10:52 | IPN ---
DATE: 05/27/2019 CARDIOLOGY PROGRESS NOTE SUBJECTIVE: Patient is currently lying in bed but has been feeling well. Yesterday was able to ambulate on the bryan without chest discomfort, shortness of breath, dizziness or any awareness of her heart action. Tolerating her medications without adverse effect. OBJECTIVE: Overweight, pleasant young woman currently lying flat, in no distress. Heart rate 84 beats per minute (bpm) and regular blood pressure 118/76, respiratory rate 16 per minute, oxygen (O2) saturation 97% on room air. Afebrile. Her weight today is slightly down from yesterday at 194 pounds without diuretic therapy. No respiratory difficulties lying flat. No current dependent edema. LABORATORY DATA: No further laboratory studies were performed today but iron studies from the 05/25/2019 returned showing low serum iron and ferritin levels. Vitamin B12 and folic acid levels are pending. IMPRESSION/PLAN: 1. Heart failure (systolic and diastolic): As mentioned, she continues to appear compensated with effort tolerance back to her normal level. Tolerating her digoxin, Entresto and carvedilol combination therapies. I have called prescriptions for these agents into her pharmacy and have provided her with a 30-day trial of Entresto without charge. We will be filling out preauthorization forms for this agent through her insurance company. Paperwork for her LifeVest has been completed, and we are hoping that she will be able to be fitted with this today so she could be discharged home. 2. Abnormal EKG: No further followup tracing was obtained. Remains free of any symptom or sign of myocardial ischemia. Will continue on protective carvedilol and Entresto. 3. Mitral valve disorder (nonrheumatic): No auscultatory findings as previously mentioned. Remains free of symptom or sign of endocarditis. 4. Dilated cardiomyopathy: At this point, viral studies remain pending. We have asked for Coxsackie viral type B, which is the most likely culprit. Her Lyme screen is also pending at this time. Otherwise as per assessment #1. She understands the importance of compliance with a modest salt and fluid intake restriction, weight loss and regular low level aerobic exercise. My office will be arranging for a followup appointment for her in 2 weeks. 5. Body mass index (BMI) 35.6: She appears to understand the importance of weight reduction and seems motivated to affect change. Once her LifeVest is in place, she should be able to be discharged home. As mentioned, I have called her pharmacy with her prescriptions, which should include iron replacement therapy at least 324 mg twice a day for 6 weeks. My office will be calling her tomorrow morning with a followup clinic visit/CHF check in 2 weeks.
[2019-05-27 12:00] VITALS: BP 121/63
--- NOTE | 2019-05-28 00:05 | ECGEPIP ---
[facility] Test Date: 2019-05-26 Pat Name: WINSTON GUTIERREZ Department: Room: [place] [address] Gender: Female Quality Assurance Engineer: MIGUEL ÁNGEL : 1985 Requested By: Ignacio Ulrich Order Number: [id number] Reading MD: David Hay Measurements Intervals Tuttle Rate: 83 P: 26 OR: 142 QRS: 12 QRSD: 100 T: 0 QT: 362 QTc: 426 Interpretive Statements SINUS RHYTHM Delayed anterior R wave progression NONSPECIFIC ST & T-WAVE ABNORMALITY Similar to tracing done 05-24-19 Electronically Signed on 05-28-2019 0:05:22 EST by David Hay
[2019-05-28 11:27] LABS: FOLATE 14.9 NG/ML (>5.4)
[2019-05-29 00:06] LABS: Lyme Disease IgG/IgM Antibodie <0.91 ISR (0.00-0.90); Lyme Disease IgM Ab Quantitati <0.80 index (0.00-0.79)
== END 2019-05-27 16:00 | disposition home or self-care (01) | DRG 205 ==
LOC: M ED 15:06 → M ED INP 20:52 → M PCU 21:40
PROVIDERS: ADMIT Internal Medicine; ATTEND Internal Medicine
DX: I42.0 Dilated cardiomyopathy (principal); I50.43 Acute on chronic combined systolic (congestive) and diastolic (congestive) heart failure; I34.0 Nonrheumatic mitral (valve) insufficiency; Z68.35 Body mass index [BMI] 35.0-35.9, adult

== ENCOUNTER → 2019-07-11 | Outpatient (CLI) | payer OTHER ==
[~2019-07-11] MED LIST changes: +FURO40TA2 PO; +MICR1TAB16 PO
[2019-07-11 11:12] LABS: ALBUMIN 3.3 GM/DL (3.2-5.2); BLOOD UREA NITROGEN 11 MG/DL (7-18); CALCIUM LEVEL 8.6 MG/DL (8.5-10.1); CARBON DIOXIDE LEVEL 30 MEQ/L (21-32); CHLORIDE LEVEL 103 MEQ/L (98-107); CREATININE FOR GFR 0.66 MG/DL (0.55-1.30); GLOMERULAR FILTRATION RATE > 60.0 (>60); GLUCOSE, FASTING 91 MG/DL (70-100); NT-PRO BNP 752 PG/ML (<125); PHOSPHORUS LEVEL 2.5 MG/DL (2.5-4.9); SODIUM LEVEL 138 MEQ/L (136-145)
== END ==
LOC: M LAB 10:00
PROVIDERS: ATTEND Internal Medicine Cardiovascular Disease
DX: I50.42 Chronic combined systolic (congestive) and diastolic (congestive) heart failure (principal)

== ENCOUNTER → 2019-09-17 | Outpatient (CLI) | payer OTHER ==
[2019-09-17 14:56] LABS: ALBUMIN 3.1 GM/DL (3.2-5.2); BLOOD UREA NITROGEN 16 MG/DL (7-18); CALCIUM LEVEL 9.1 MG/DL (8.5-10.1); CARBON DIOXIDE LEVEL 29 MEQ/L (21-32); CHLORIDE LEVEL 106 MEQ/L (98-107); CREATININE FOR GFR 0.89 MG/DL (0.55-1.30); GLOMERULAR FILTRATION RATE > 60.0 (>60); GLUCOSE, FASTING 100 MG/DL (70-100); NT-PRO BNP 209 PG/ML (<125); PHOSPHORUS LEVEL 3.6 MG/DL (2.5-4.9); POTASSIUM SERUM 4.1 MEQ/L (3.5-5.1); SODIUM LEVEL 139 MEQ/L (136-145)
== END ==
LOC: M LAB 12:58
PROVIDERS: ATTEND Internal Medicine Cardiovascular Disease
DX: I50.42 Chronic combined systolic (congestive) and diastolic (congestive) heart failure (principal); R94.31 Abnormal electrocardiogram [ECG] [EKG]; I42.0 Dilated cardiomyopathy

== ENCOUNTER → 2019-09-28 | Outpatient (REF) | payer OTHER | LOC: M SFHCWAGY 17:59 | PROVIDERS: ATTEND Specialist | DX: Z01.419 Encounter for gynecological examination (general) (routine) without abnormal findings (principal) ==

== ENCOUNTER 2019-11-08 02:03 | Emergency (ER) | payer OTHER ==
[~2019-11-08] VITALS: Ht 157.5 cm; Wt 84.1 kg
[2019-11-08 03:30] VITALS: BP 152/81
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
[2019-11-08] MEDS ORDERED: LIDOCAINE W/EPINEPHRINE 1% 20ML VIAL SC ONE (04:30)
[2019-11-08] MEDS ORDERED: IBUP-1022 PO (05:58)
== END 2019-11-08 06:45 | disposition home or self-care (01) ==
LOC: M ED 02:03 → EDBD 02:03 → M ED 06:45
DX: S16.1XXA Strain of muscle, fascia and tendon at neck level, initial encounter (principal); S01.81XA Laceration without foreign body of other part of head, initial encounter; T74.11XA Adult physical abuse, confirmed, initial encounter; Y04.8XXA Assault by other bodily force, initial encounter; Y07.03 Male partner, perpetrator of maltreatment and neglect; Z79.899 Other long term (current) drug therapy; Y99.9 Unspecified external cause status; Y92.013 Bedroom of single-family (private) house as the place of occurrence of the external cause; Y93.9 Activity, unspecified

== ENCOUNTER → 2019-12-18 | Outpatient (CLI) | payer OTHER ==
[~2019-12-18] MED LIST changes: +IBUP-1022 PO
[2019-12-18 14:01] LABS: ALBUMIN 3.6 GM/DL (3.2-5.2); BLOOD UREA NITROGEN 12 MG/DL (7-18); CARBON DIOXIDE LEVEL 31 MEQ/L (21-32); CHLORIDE LEVEL 106 MEQ/L (98-107); CREATININE FOR GFR 0.78 MG/DL (0.55-1.30); GLOMERULAR FILTRATION RATE > 60.0 (>60); GLUCOSE, FASTING 81 MG/DL (70-100); NT-PRO BNP 99 PG/ML (<125); PHOSPHORUS LEVEL 3.2 MG/DL (2.5-4.9); POTASSIUM SERUM 4.2 MEQ/L (3.5-5.1); SODIUM LEVEL 140 MEQ/L (136-145)
== END ==
LOC: M LAB 12:40
PROVIDERS: ATTEND Internal Medicine Cardiovascular Disease
DX: I50.42 Chronic combined systolic (congestive) and diastolic (congestive) heart failure (principal); R94.31 Abnormal electrocardiogram [ECG] [EKG]; I42.0 Dilated cardiomyopathy

== ENCOUNTER → 2020-05-13 | Outpatient (CLI) | payer OTHER ==
[2020-05-13 10:48] LABS: BLOOD UREA NITROGEN 16 MG/DL (7-18); CALCIUM LEVEL 9.3 MG/DL (8.5-10.1); CARBON DIOXIDE LEVEL 33 MEQ/L (21-32); CHLORIDE LEVEL 106 MEQ/L (98-107); CREATININE FOR GFR 0.78 MG/DL (0.55-1.30); GLOMERULAR FILTRATION RATE > 60.0 (>60); GLUCOSE, FASTING 101 MG/DL (70-100); NT-PRO BNP 45 PG/ML (<125); POTASSIUM SERUM 4.4 MEQ/L (3.5-5.1); SODIUM LEVEL 138 MEQ/L (136-145)
== END ==
LOC: M LAB 09:22
PROVIDERS: ATTEND Physician Assistant
DX: R06.02 Shortness of breath (principal)

== ENCOUNTER → 2022-12-21 | Outpatient (REF) | payer OTHER ==
[~2022-12-21] MED LIST changes: +CARV12.5; +ENTR1TAB7; +FARX1TAB3; +JENC0.35; -MICR1TAB16 PO; +NORE1TAB86 PO
== END ==
LOC: M SFHCWAGY 17:42
PROVIDERS: ATTEND Specialist
DX: Z12.4 Encounter for screening for malignant neoplasm of cervix (principal); R87.810 Cervical high risk human papillomavirus (HPV) DNA test positive

== ENCOUNTER 2024-09-07 01:51 | Emergency (ER) | payer MEDICAID, OTHER ==
[~2024-09-07] VITALS: Ht 157.5 cm; Wt 107.9 kg
[~2024-09-07 01:51] MED LIST changes: +NORE-30 PO; -NORE1TAB86 PO
[2024-09-07 02:39] LABS: BASO # 0.1 10^3/uL (0.0-0.2); BASO % 0.3 % (0.0-1.0); EOS # 0.7 10^3/uL (0.0-0.5); EOS % 3.4 % (0.0-3.0); HEMATOCRIT 40.8 % (36.0-47.0); HEMOGLOBIN 13.4 g/dl (12.0-15.5); LYMPH % 10.3 % (24.0-44.0); MEAN CORPUSCULAR HGB CONC 32.8 g/dl (32.0-36.5); MEAN CORPUSCULAR VOLUME 88.3 fl (80.0-96.0); MONO # 1.2 10^3/uL (0.0-0.8); MONO % 6.2 % (2.0-8.0); NEUTROPHILS # 15.6 10^3/uL (1.5-8.5); NEUTROPHILS % 79.5 % (36.0-66.0); PLATELET COUNT, AUTOMATED 269 10^3/uL (150-450); RED BLOOD COUNT 4.62 10^6/uL (4.00-5.40); WHITE BLOOD COUNT 19.6 10^3/uL (4.0-10.0)
[2024-09-07] MEDS ORDERED: ISOVUE-370 76% 100ML VIAL As Ordered ONE (02:52)
[2024-09-07 03:07] LABS: BLOOD UREA NITROGEN 13 MG/DL (9-23); C REACTIVE PROTEIN QUANTITATIV 1.96 MG/DL (<1.0); CALCIUM LEVEL 8.7 MG/DL (8.5-10.1); CARBON DIOXIDE LEVEL 27 MMOL/L (20-31); CHLORIDE LEVEL 103 MMOL/L (98-107); CREATININE FOR GFR 0.78 MG/DL (0.55-1.30); GLOMERULAR FILTRATION RATE > 90.0 (>60); GLUCOSE, FASTING 110 MG/DL (60-100); POTASSIUM SERUM 4.2 MMOL/L (3.5-5.1); SODIUM LEVEL 138 MMOL/L (136-145)
[2024-09-07 03:08] LABS: HCG, SERUM QUALITATIVE NEGATIVE (NEGATIVE)
[2024-09-07] MEDS ORDERED: VANCOMYCIN HCL 1,000 MG in IV FLUID PLACE HOLDER 1 EA IV ONE (03:15)
[2024-09-07] MEDS: PIPERACILLIN/TAZOBACTAM SOD 4.5 GM in DEXTROSE 5% (D5W) ADV/MINI-BAG 50 ML IV ONE (03:44)
[2024-09-07] MEDS: NS (Normal Saline) 0.9% 1,000 ML IV ONE (03:44)
[2024-09-07] MEDS: VANCOMYCIN HCL 2,000 MG, VIAL MATE ADAPTER 1 EACH in NS 500 ML IV ONE (04:38)
[2024-09-07] MEDS: diphenhydrAMINE 50MG/ML VIAL IV STA (06:30)
[2024-09-07] MEDS: [UNRECOGNIZED DRUG - OTHER] IV ONE (06:31)
[2024-09-07] MEDS: NS 0.9% IV ONE (06:31)
[2024-09-07 09:15] VITALS: BP 87/51; TEMP 97.7; O2SAT 98
== END 2024-09-07 09:24 | disposition short-term general hospital (02) ==
LOC: M ED 01:51
DX: T82.7XXA Infection and inflammatory reaction due to other cardiac and vascular devices, implants and grafts, initial encounter (principal); A41.9 Sepsis, unspecified organism; L03.313 Cellulitis of chest wall; E11.9 Type 2 diabetes mellitus without complications; I10 Essential (primary) hypertension; Z79.899 Other long term (current) drug therapy; Z95.0 Presence of cardiac pacemaker
CPT/HCPCS: 71260; 80047; 80048; 83605; 84703; 85025; 86140; 87040; 96361; 96365; 96375; 96376; 99285; J1200; J2543; J3371; Q9967

== ENCOUNTER → 2024-09-17 | Outpatient (REF) | payer OTHER ==
[2024-09-17 15:11] LABS: HEMATOCRIT 35.8 % (36.0-47.0); HEMOGLOBIN 11.4 g/dl (12.0-15.5); MEAN CORPUSCULAR HEMOGLOBIN 28.6 pg (27.0-33.0); MEAN CORPUSCULAR HGB CONC 31.8 g/dl (32.0-36.5); MEAN CORPUSCULAR VOLUME 89.7 fl (80.0-96.0); PLATELET COUNT, AUTOMATED 369 10^3/uL (150-450); RED BLOOD COUNT 3.99 10^6/uL (4.00-5.40)
[2024-09-17 15:35] LABS: ALBUMIN 2.8 G/DL (3.2-5.2); ALKALINE PHOSPHATASE 72 U/L (35-104); ALT/SGPT 25 U/L (7.0-40); AST/SGOT 23 U/L (<34); BILIRUBIN,TOTAL 0.2 MG/DL (0.3-1.2); BLOOD UREA NITROGEN 16 MG/DL (9-23); CALCIUM LEVEL 8.2 MG/DL (8.5-10.1); CARBON DIOXIDE LEVEL 26 MMOL/L (20-31); CHLORIDE LEVEL 108 MMOL/L (98-107); GLOMERULAR FILTRATION RATE > 90.0 (>60); GLUCOSE, FASTING 101 MG/DL (60-100); POTASSIUM SERUM 3.8 MMOL/L (3.5-5.1); SODIUM LEVEL 144 MMOL/L (136-145); TOTAL PROTEIN 7.2 G/DL (5.7-8.2)
== END ==
LOC: M LAB REF 14:26
PROVIDERS: ATTEND Internal Medicine Infectious Disease
DX: T56.0X1A Toxic effect of lead and its compounds, accidental (unintentional), initial encounter (principal)

== ENCOUNTER → 2024-09-24 | Outpatient (REF) | payer OTHER ==
[2024-09-24 20:22] LABS: HEMATOCRIT 39.4 % (36.0-47.0); HEMOGLOBIN 12.4 g/dl (12.0-15.5); MEAN CORPUSCULAR HEMOGLOBIN 28.1 pg (27.0-33.0); MEAN CORPUSCULAR HGB CONC 31.5 g/dl (32.0-36.5); MEAN CORPUSCULAR VOLUME 89.3 fl (80.0-96.0); PLATELET COUNT, AUTOMATED 373 10^3/uL (150-450); RED BLOOD COUNT 4.41 10^6/uL (4.00-5.40)
[2024-09-24 20:45] LABS: ALBUMIN 3.5 G/DL (3.2-5.2); ALKALINE PHOSPHATASE 71 U/L (35-104); ALT/SGPT 29 U/L (7.0-40); AST/SGOT 25 U/L (<34); BILIRUBIN,TOTAL 0.5 MG/DL (0.3-1.2); BLOOD UREA NITROGEN 14 MG/DL (9-23); CALCIUM LEVEL 8.5 MG/DL (8.5-10.1); CARBON DIOXIDE LEVEL 26 MMOL/L (20-31); CHLORIDE LEVEL 106 MMOL/L (98-107); CREATININE FOR GFR 0.66 MG/DL (0.55-1.30); GLOMERULAR FILTRATION RATE > 90.0 (>60); GLUCOSE, FASTING 99 MG/DL (60-100); POTASSIUM SERUM 3.9 MMOL/L (3.5-5.1); SODIUM LEVEL 144 MMOL/L (136-145); TOTAL PROTEIN 7.9 G/DL (5.7-8.2)
== END ==
LOC: M LAB REF 19:51
PROVIDERS: ATTEND Internal Medicine Infectious Disease
DX: T82.7XXA Infection and inflammatory reaction due to other cardiac and vascular devices, implants and grafts, initial encounter (principal); A49.1 Streptococcal infection, unspecified site

== ENCOUNTER 2024-09-29 13:16 | Emergency (ER) | payer OTHER ==
[~2024-09-29] VITALS: Ht 157.5 cm; Wt 106.2 kg
[2024-09-29 13:18] VITALS: BP 117/72; TEMP 97.3; O2SAT 98
== END 2024-09-29 14:56 | disposition home or self-care (01) ==
LOC: M ED 13:16
DX: Z48.01 Encounter for change or removal of surgical wound dressing (principal); Z79.899 Other long term (current) drug therapy

== ENCOUNTER → 2024-10-02 | Outpatient (REF) | payer OTHER ==
[2024-10-02 16:59] LABS: HEMATOCRIT 41.3 % (36.0-47.0); HEMOGLOBIN 13.4 g/dl (12.0-15.5); MEAN CORPUSCULAR HEMOGLOBIN 28.4 pg (27.0-33.0); MEAN CORPUSCULAR HGB CONC 32.4 g/dl (32.0-36.5); MEAN CORPUSCULAR VOLUME 87.5 fl (80.0-96.0); PLATELET COUNT, AUTOMATED 319 10^3/uL (150-450); RED BLOOD COUNT 4.72 10^6/uL (4.00-5.40); WHITE BLOOD COUNT 11.6 10^3/uL (4.0-10.0)
[2024-10-02 17:08] LABS: ALBUMIN 3.7 G/DL (3.2-5.2); ALKALINE PHOSPHATASE 77 U/L (35-104); ALT/SGPT 25 U/L (7.0-40); AST/SGOT 17 U/L (<34); BILIRUBIN,TOTAL 0.6 MG/DL (0.3-1.2); BLOOD UREA NITROGEN 14 MG/DL (9-23); CALCIUM LEVEL 9.2 MG/DL (8.5-10.1); CARBON DIOXIDE LEVEL 26 MMOL/L (20-31); CHLORIDE LEVEL 103 MMOL/L (98-107); CREATININE FOR GFR 0.55 MG/DL (0.55-1.30); GLOMERULAR FILTRATION RATE > 90.0 (>60); GLUCOSE, FASTING 98 MG/DL (60-100); POTASSIUM SERUM 4.1 MMOL/L (3.5-5.1); SODIUM LEVEL 139 MMOL/L (136-145); TOTAL PROTEIN 8.3 G/DL (5.7-8.2)
== END ==
LOC: M LAB REF 16:20
PROVIDERS: ATTEND Internal Medicine Infectious Disease
DX: T82.7XXA Infection and inflammatory reaction due to other cardiac and vascular devices, implants and grafts, initial encounter (principal); B95.0 Streptococcus, group A, as the cause of diseases classified elsewhere

== ENCOUNTER → 2025-05-13 | Outpatient (REF) | payer OTHER ==
[~2025-05-13] MED LIST changes: -IBUP-1022 PO; +IBUP600T42 PO
== END ==
LOC: M PLALAB 08:38
PROVIDERS: ATTEND Specialist
DX: Z53.9 Procedure and treatment not carried out, unspecified reason (principal)